=== PATIENT | female | born 1925 | race Caucasian/White ===

== ENCOUNTER 2017-05-12 07:32 | Inpatient (IN) | payer OTHER ==
[~2017-05-12] VITALS: Ht 165.1 cm; Wt 46.7 kg
--- NOTE | ~2017-05-12 | EKG ---
[place] [address] [facility] [place] [address] ELECTROCARDIOGRAM REPORT Name: COCOMADIHAMAUREEN A Room #: 428-P ADM IN M.R.#: [id number] Admission: 05/12/17 Attend Phys: Kasandra José MD Discharge: Date of : [birth year] Report #: [id number] THIS REPORT FOR: //name// [facility] ED Test Date: 2017-05-12 Test Time: 07:52:13 Pat Name: MAUREEN JAMES Department: Room: [facility] Gender: F Svp Group Director: . : [id number] Requested By: Maggie Carrera Order Number: [id number] MD: Carlitos Gage Measurements Intervals [place] Rate: 104 P: IA: QRS: 89 QRSD: 96 T: 259 QT: 337 QTc: 444 Interpretive Statements Atrial fibrillation ST and T wave abnormality, consider lateral ischemia Cannot rule out septal infarct, age indeterminate Compared to ECG 01/12/2015 01:55:[address] and T wave abnormality is now present Electronically Signed On 05-15-2017 13:22:33 CDT by Carlitos Gage [email or web address] <ELECTRONICALLY SIGNED> By: Carlitos Gage MD, FACC 05/15/17 1322 [id number] Carlitos Gage MD, [facility] /EPI
--- NOTE | ~2017-05-12 | H ---
[facility] [place] [address] HISTORY AND PHYSICAL Name: ERIKAMAUREEN Jakob Room #: 428-P [facility] IN .R.#: [id number] Admission: 05/12/17 Attend Phys: Kasandra José MD Discharge: Date of : [birth year] Report #: [id number] THIS REPORT FOR: //name// CC: Kasandra José DATE OF SERVICE: 05/12/2017 CHIEF COMPLAINT: Fever. HISTORY OF PRESENT ILLNESS: The patient is a pleasant 89-year-old female who resides at [facility]. She is able to transfer herself from bed to chair, but is essentially wheelchair bound. She has chronic atrial fibrillation and is on Pradaxa for prophylaxis. She also has a chronic edema of her left lower extremity. She reports that she was having increased pain in her left leg just starting yesterday morning. On the morning of admission, she was found to have fever of 101.2 and somewhat hypotensive with a blood pressure of 99/61. She was brought to [facility] Emergency Department for evaluation where she was found to have cellulitis of the left lower extremity, continued fever and elevated leukocytes. She is therefore admitted with working diagnosis of sepsis and cellulitis. PAST MEDICAL HISTORY: Chronic ischemic heart disease, atrial fibrillation, osteoarthritis, hypothyroidism, cervical spondylosis with chronic neck pain, gastroesophageal reflux disease, opioid-induced constipation and iron deficiency anemia. ALLERGIES: LISINOPRIL, MORPHINE and TYLENOL, WHICH CAUSES DIARRHEA. MEDICATIONS: Coreg 25 mg b.i.d., digoxin 125 mcg daily, Colace 100 mg daily, ferrous sulfate 325 mg daily, levothyroxine 100 mcg daily, Mucinex 600 mg b.i.d., omeprazole 20 mg daily, calcium with vitamin D one tablet twice a day, MiraLax 17 grams in 8 ounce water every Monday, and Monday; Pradaxa 150 mg one tablet twice a day, Senna-S 8.6 mg daily, tramadol 50 mg 2 tablets t.i.d., [place] 5/325 one every 4 hours as needed, Lasix 40 mg daily, Colace 100 mg daily as needed, DuoNeb nebulized treatments q.i.d. p.r.n., guaifenesin 10 mL p.o. every 4 hours as needed. FAMILY HISTORY: Noncontributory. SOCIAL HISTORY: The patient resides at [facility]. She is and does not use tobacco or alcohol. REVIEW OF SYSTEMS: GENERAL: At this time, the patient is somnolent, but she is usually able to transfer herself independently with chronic neck pain. HEENT: Negative. [address] [address] HISTORY AND PHYSICAL Name: MAUREEN JAMES Room #: 428-P [facility] IN M.R.#: [id number] Admission: 05/12/17 Attend Phys: Kasandra José MD Discharge: Date of : [birth year] Report #: [id number] PULMONARY: Negative. CARDIAC: Negative. GASTROINTESTINAL: Negative. MUSCULOSKELETAL: She is able to transfer independently, but gets about the facility in a wheelchair. She is able to wheel herself around independently. Otherwise, left lower extremity pain and edema as per history of present illness. NEUROLOGIC: Negative. LYMPHATICS: Negative. PHYSICAL EXAMINATION: GENERAL: The patient is a pleasant, cooperative elderly female lying in bed, not as alert as her baseline. VITAL SIGNS: Reveal temperature of 36.7, pulse of 69, respiratory rate 16, blood pressure 101/37. HEENT: Head is normocephalic, atraumatic. Pupils are equal and reactive. Extraocular muscles are intact. Oropharynx is dry. NECK: Supple. Trachea midline. LUNGS: Clear to auscultation bilaterally. CARDIOVASCULAR: Irregular rate and rhythm. ABDOMEN: Soft, nontender, nondistended with normoactive bowel sounds. SKIN: Warm and dry. Turgor is diminished. Her left lower extremity is erythematous, tender and warm to touch from below the knee to her ankle. LYMPHATICS: No cervical or axillary lymphadenopathy. NEUROLOGIC: She is awake, alert, oriented to self and place and thinks she is still at the detention, although staff reports that she was oriented earlier this morning. She has no focal neurologic deficit or lateralizing sign. MUSCULOSKELETAL: Reveals equal and symmetric strength throughout. LABORATORY DATA: BMP with findings of BUN of 23, creatinine 1.0, magnesium was 1.7. Troponin is negative. INR is 1.3. WBC is 14.3, hemoglobin is 11.1, hematocrit is 32.7. ASSESSMENT: 1. Sepsis with metabolic toxic encephalopathy, fever and leukocytosis. 2. Cellulitis of left lower extremity. 3. Mild volume depletion. 4. Hypothyroidism. 5. Atrial fibrillation, which is chronic. 6. Iron deficiency anemia. 7. Cervical spondylosis, requiring chronic pain medications. PLAN: Admission, IV fluids, IV Ancef. Monitor her labs. Resume home medications. Follow up on blood cultures at this time and consider adding vancomycin if she shows no improvement in 48 hours and that she lives in a detention. [facility] [address] [place] [address] HISTORY AND PHYSICAL Name: MAUREEN JAMES Room #: 428-P [facility] IN .R.#: [id number] Admission: 05/12/17 Attend Phys: Kasandra José MD Discharge: Date of : [birth year] Report #: [id number] CODE STATUS: Full code. <ELECTRONICALLY SIGNED> By: Kasandra José MD 05/16/17 0905 [id number] Kasandra José MD /nt
[~2017-05-12 07:32] MED LIST: ACETAMINOPHEN325 M1 PO; ADULT LOW DOSE81 MG PO; ALBUTEROL MDI INH; ALDACTONE25 MG PO; AMOXICILLIN 50500 M1 PO; ANTIVERT25 MG PO; ASPIR 8181 MG; ASPIRIN325 PO; ASPIRIN81 M2 PO; ATORVASTATIN CA40 MG PO; AUGMENTIN PO; BENZONATATE100 MG PO; CALCIUM 500 +1 EAC5 PO; CALCIUM 600 +1 EAC1 PO; CALCIUM OYSTER500 MG PO; CALCIUM PO; CARDIZEM CD240 MG PO; CARVEDILOL25 MG PO; COLACE100 MG PO; COREG CR20 MG PO; COUMADIN 1MG TAB1 M1 PO; COZAAR 25 MG TA25 MG PO; COZAAR 50 MG TA50 MG PO; CYCLOBENZAPRINE10 MG PO; DILTIAZEM 24HR240 M2 PO; DUONEB 2.5-0.5 M3 ML INH; ENOXAPARIN30 MG/0.1 SUBQ; FUROSEMIDE 40 M40 M1 PO; HYDROCODON-ACE1 EA11 PO; HYDROCODON-ACE1 EAC8 PO; HYDROCODON-ACE1 EACH PO; KLOR-CON 10 ER10 MEQ PO; LANOXIN 0.120.125 M1 PO; LANOXIN 0.250.25 M1 PO; LEVAQUIN 500 M500 M2 PO; LEVOXYL100 MCG PO; LIDODERM 5%1 PATC1 TRANSDERM; MIRALAX17 GM PO; MUCINEX600 MG PO; MULTIVITAMINS PO; MULTIVITAMINS1 EAC7 PO; NATURAL CALCIU500 M1 PO; NORCO 5-325 TA1 EACH PO; PACERONE 200 M200 M1 PO; POTASSIUM20 PO; PRAVACHOL40 MG PO; PREDNISONE 10 M10 MG; PREVALITE PACKE1 PKT PO; PROMETHAZINE/C118 ML PO; PROTONIX40 M1 PO; SENOKOT-S1 TA1 PO; SYNTHROID200 MCG PO; TESSALON PERLE100 MG PO; ULTRAM 50MG TAB50 MG PO; VITAMIN E400 UNIT PO; ZAROXOLYN 2.5M2.5 M1 PO; ZOFRAN ODT4 MG DISSOLVE; [UNRECOGNIZED DRUG - OTHER]
[2017-05-12 07:38] VITALS: BP 114/51
[2017-05-12 07:48] LABS: HEMATOCRIT 32.7 % (37.0-47.0); HEMOGLOBIN 11.1 gm/dL (12.0-15.0); MCH 32.4 pg (26.0-34.0); MCV 95.4 fL (80.0-100.0); PLATELET COUNT 152 thou/uL (150-400); RBC 3.42 mil/uL (4.20-5.00); RDW 12.9 % (10.5-14.5); WBC 14.3 thou/uL (4.0-11.0)
[2017-05-12 07:49] LABS: MANUAL DIFF YES
[2017-05-12 08:03] LABS: APTT 44.8 Seconds (24.5-32.8); INR 1.3; PROTIME 13.3 Seconds (9.3-11.4)
[2017-05-12 08:06] LABS: ANION GAP 7 mmol/L (7-16); BUN 23 mg/dL (7-18); CALCIUM 8.8 mg/dL (8.5-10.1); CHLORIDE 102 mmol/L (98-107); CO2 31 mmol/L (21-32); GLUCOSE 101 mg/dL (74-106); POTASSIUM 3.8 mmol/L (3.5-5.1); SODIUM 140 mmol/L (136-145)
[2017-05-12] MEDS ORDERED: IRON325 PO (08:14)
[2017-05-12 08:15] LABS: MAGNESIUM 1.7 mg/dL (1.8-2.4); TROPONIN-I < 0.04 ng/mL (<0.04-0.07)
[2017-05-12] MEDS ORDERED: MUCINEX TA600 MG/TA2 PO (08:16)
[2017-05-12 08:33] LABS: ABSOLUTE NEUTROPHILS 13.2 thou/uL (1.4-8.2); TOTAL CELL COUNT 100
[2017-05-12] MEDS ORDERED: OMEPRAZOLE 20 M20 M1 PO (08:33)
[2017-05-12 09:47] VITALS: BP 109/39
[2017-05-12 10:15] VITALS: BP 109/39
[2017-05-12 11:21] VITALS: BP 101/37
[2017-05-12 15:50] VITALS: BP 144/43
[2017-05-12 19:45] VITALS: BP 124/63
[2017-05-13 03:20] VITALS: BP 115/53
[2017-05-13 07:57] VITALS: BP 113/47
[2017-05-13 16:10] VITALS: BP 122/52
[2017-05-13 20:00] VITALS: BP 125/48
[2017-05-14 04:47] VITALS: BP 130/52
[2017-05-14 06:05] LABS: HEMATOCRIT 29.6 % (37.0-47.0); HEMOGLOBIN 10.1 gm/dL (12.0-15.0); MCH 32.7 pg (26.0-34.0); MCHC 34.2 g/dL (28.0-37.0); MCV 95.6 fL (80.0-100.0); RBC 3.09 mil/uL (4.20-5.00); RDW 13.6 % (10.5-14.5); WBC 10.6 thou/uL (4.0-11.0)
[2017-05-14 06:17] LABS: CALCIUM 8.3 mg/dL (8.5-10.1); CREATININE 0.8 mg/dL (0.6-1.0); POTASSIUM 3.7 mmol/L (3.5-5.1)
[2017-05-14 08:00] VITALS: BP 123/42
[2017-05-14 16:00] VITALS: BP 102/83
[2017-05-14 19:46] VITALS: BP 133/53
[2017-05-15 04:26] VITALS: BP 122/43
[2017-05-15 08:55] VITALS: BP 116/47
[2017-05-15 18:46] VITALS: BP 136/64
[2017-05-16 06:21] LABS: HEMOGLOBIN 9.6 gm/dL (12.0-15.0); MCHC 34.3 g/dL (28.0-37.0); RBC 2.91 mil/uL (4.20-5.00); RDW 13.6 % (10.5-14.5); WBC 8.7 thou/uL (4.0-11.0)
[2017-05-16 06:35] LABS: CALCIUM 8.4 mg/dL (8.5-10.1); CREATININE 0.7 mg/dL (0.6-1.0)
[2017-05-16 08:17] VITALS: BP 106/48
[2017-05-16] MEDS ORDERED: PRADAXA150 MG PO (08:49)
[2017-05-16] MEDS ORDERED: VANC750 IVPB (08:51)
== END 2017-05-16 17:50 | DRG 871 ==
LOC: ER 07:32 → 4E 09:37 → EROBS 09:37 → 4E 10:10
PROVIDERS: Emergency Medicine; Internal Medicine
PROC: B548ZZA Ultrasonography of Superior Vena Cava, Guidance (ICD-10-PCS; principal; 2017-05-16)
PROC: B5181ZA Fluoroscopy of Superior Vena Cava using Low Osmolar Contrast, Guidance (ICD-10-PCS; principal; 2017-05-16)
PROC: 02HV33Z Insertion of Infusion Device into Superior Vena Cava, Percutaneous Approach (ICD-10-PCS; principal; 2017-05-16)
DX: A41.9 Sepsis, unspecified organism (principal); G92 Toxic encephalopathy; L03.116 Cellulitis of left lower limb; Z96.651 Presence of right artificial knee joint; I48.2 Chronic atrial fibrillation; I25.9 Chronic ischemic heart disease, unspecified; M19.90 Unspecified osteoarthritis, unspecified site; E03.9 Hypothyroidism, unspecified; G89.29 Other chronic pain; M54.2 Cervicalgia; K21.9 Gastro-esophageal reflux disease without esophagitis; K59.03 Drug induced constipation; E86.9 Volume depletion, unspecified; D50.9 Iron deficiency anemia, unspecified; M47.892 Other spondylosis, cervical region; Z79.899 Other long term (current) drug therapy; I25.2 Old myocardial infarction; Z95.1 Presence of aortocoronary bypass graft; Z98.41 Cataract extraction status, right eye; Z90.710 Acquired absence of both cervix and uterus; Z88.6 Allergy status to analgesic agent; Z88.8 Allergy status to other drugs, medicaments and biological substances
CPT/HCPCS: 10183